=== PATIENT | female | born 1940 | race Caucasian/White ===

== ENCOUNTER 2018-10-29 00:23 | Emergency (ER) | payer MEDICARE, OTHER ==
[~2018-10-29] VITALS: Ht 162.5 cm; Wt 72.6 kg
--- NOTE | ~2018-10-29 | EKG ---
[place], [place] ELECTROCARDIOGRAM REPORT NAME: WINNIE SPENCER UNIT #: [id number] ROOM: DOCTOR: EPIPHANY DRAFT REPORT BIRTHDATE: [birth year] [facility] Test Date: 2018-10-29 Test Time: 03:14:02 Pat Name: WINNIE SPENCER Department: Room: Gender: F Recreation Therapy Aides Teacher: : 1940 Requested By: YARON NOLEN Order Number: [id number] Reading MD: Wilmar Walls MD Measurements Intervals [place] Rate: 82 P: 51 CO: 184 QRS: -32 QRSD: 81 T: 31 QT: 347 QTc: 406 Interpretive Statements Sinus rhythm Atrial premature complexes Left atrial enlargement Left axis deviation Probable anterior infarct, age indeterminate Electronically Signed On 10-30-2018 8:13:54 PDT by Wilmar Walls MD CM:EKGRPT:ELECTROCARDIOGRAM REPORT [id number] YARON RIDER DRAFT REPORT YARON NOLEN DO
--- NOTE | ~2018-10-29 | EKG ---
[place], [place] ELECTROCARDIOGRAM REPORT NAME: WINNIE SPENCER UNIT #: [id number] ROOM: DOCTOR: EPIPHANY DRAFT REPORT BIRTHDATE: [birth year] [facility] Test Date: 2018-10-29 Test Time: 00:30:57 Pat Name: WINNIE SPENCER Department: Room: Gender: F Pharmacist In Charge Owner: : 1940 Requested By: YARON NOLEN Order Number: [id number] Reading MD: Wilmar Walls MD Measurements Intervals [place] Rate: 83 P: 66 [place]: 185 QRS: -39 QRSD: 79 T: 47 QT: 342 QTc: 402 Interpretive Statements Sinus rhythm Atrial premature complex Probable left atrial enlargement Left axis deviation Low voltage, precordial leads Consider anterior infarct Electronically Signed On 10-30-2018 8:13:47 PDT by Wilmar Walls MD CM:EKGRPT:ELECTROCARDIOGRAM REPORT 0030 0813 YARON RIDER DRAFT REPORT YARON NOLEN DO
[~2018-10-29 00:23] MED LIST: ACTOS45 M1 PO; BACTRIM DS 8001 TA1 PO; BACTROBAN CREAM15 GM T; GLYBURIDE AND M1 TA2 PO; JANUVIA100 MG PO; KEFLEX500 MG PO; LANTUS100 U/ML SC; LEVOTHYROXINE112 MCG PO; LIPITOR10 MG PO; LISINOPRIL5 MG PO; VIBRAMYCIN100 MG PO; ZYRTEC10 M3 PO
[2018-10-29 00:56] LABS: BASO # 0.1 10*3/uL (0.0-0.1); BASO % 0.6 % (0.0-1.0); EOS # 0.1 10*3/uL (0.0-0.4); EOS % 1.4 % (1.0-4.0); HEMATOCRIT 38.6 % (37.0-47.0); HEMOGLOBIN 12.9 g/dl (12.0-16.0); LYMPH # 1.6 10*3/uL (1.3-4.4); LYMPH % 19.7 % (27.0-41.0); MEAN CELL VOLUME 96.3 fl (81.0-99.0); MEAN CORPUSCULAR HGB 32.2 pg (27.0-31.0); MEAN CORPUSCULAR HGB CONC 33.4 g/dl (33.0-37.0); MEAN PLATELET VOLUME 9.5 fl (9.6-12.3); MONO # 1.2 10*3/uL (0.1-1.0); MONO % 15.2 % (3.0-9.0); NEUT # 5.1 10*3/uL (2.3-7.9); NEUT % 62.2 % (47.0-73.0); PLATELET COUNT AUTOMATED 241 10*3/uL (130-400); RED BLOOD COUNT 4.01 10*6/uL (4.10-5.10); RED CELL DISTRI WIDTH 13.3 % (0-14.5); WHITE BLOOD COUNT 8.1 10*3/uL (4.8-10.8)
[2018-10-29 01:10] LABS: ACT PARTIAL THROMBO TIME 26.2 SECONDS (20.0-32.1); INTERNATIONAL NORM RATIO 0.9 (2.0-3.5)
[2018-10-29 01:12] LABS: ALBUMIN 3.9 gm/dl (3.1-4.5); ALKALINE PHOSPHATASE 92 U/L (45-117); BUN 9 mg/dl (7-24); CHLORIDE 100 mmol/L (98-107); CREATININE 0.76 mg/dL (0.55-1.02); POTASSIUM 3.7 mmol/L (3.5-5.1); SGOT/AST 16 IU/L (3-35); SGPT/ALT 21 U/L (12-78); SODIUM 136 mmol/L (136-145); TOTAL PROTEIN 6.9 gm/dL (6.4-8.2)
[2018-10-29 01:24] LABS: TROPONIN I < 0.015 ng/ml (<0.045)
[2018-10-29] MEDS ORDERED: ALLERCLEAR10 MG PO (03:45)
[2018-10-29] MEDS ORDERED: ZITHROMAX250 MG PO (03:45)
== END 2018-10-29 03:59 | disposition home or self-care (01) ==
LOC: ED 00:23
PROVIDERS: Emergency Medicine
DX: J40 Bronchitis, not specified as acute or chronic (principal); J32.9 Chronic sinusitis, unspecified; Z90.49 Acquired absence of other specified parts of digestive tract; Z90.710 Acquired absence of both cervix and uterus; Z79.899 Other long term (current) drug therapy; Z79.4 Long term (current) use of insulin; Z88.0 Allergy status to penicillin; Z88.6 Allergy status to analgesic agent

== ENCOUNTER 2019-02-24 15:06 | Emergency (ER) | payer MEDICARE, OTHER ==
[~2019-02-24] VITALS: Ht 162.5 cm; Wt 74.8 kg
[~2019-02-24 15:06] MED LIST changes: +ALLERCLEAR10 MG PO; +ZITHROMAX250 MG PO
[2019-02-24 16:39] LABS: BASO % 0.6 % (0.0-1.0); EOS % 0.2 % (1.0-4.0); HEMATOCRIT 36.1 % (37.0-47.0); HEMOGLOBIN 12.4 g/dl (12.0-16.0); LYMPH # 0.8 10*3/uL (1.3-4.4); LYMPH % 15.5 % (27.0-41.0); MEAN CORPUSCULAR HGB CONC 34.3 g/dl (33.0-37.0); MONO # 0.7 10*3/uL (0.1-1.0); MONO % 13.2 % (3.0-9.0); NEUT # 3.7 10*3/uL (2.3-7.9); NEUT % 70.3 % (47.0-73.0); PLATELET COUNT AUTOMATED 283 10*3/uL (130-400); RED BLOOD COUNT 3.88 10*6/uL (4.10-5.10); RED CELL DISTRI WIDTH 12.4 % (0-14.5); WHITE BLOOD COUNT 5.3 10*3/uL (4.8-10.8)
[2019-02-24 16:58] LABS: ALBUMIN 3.5 gm/dl (3.1-4.5); ALKALINE PHOSPHATASE 89 U/L (45-117); BUN 7 mg/dl (7-24); CHLORIDE 92 mmol/L (98-107); CREATININE 0.68 mg/dL (0.55-1.02); POTASSIUM 3.5 mmol/L (3.5-5.1); SGOT/AST 22 IU/L (3-35); SGPT/ALT 24 U/L (12-78); SODIUM 127 mmol/L (136-145); TOTAL PROTEIN 6.5 gm/dL (6.4-8.2)
== END 2019-02-24 18:46 | disposition home or self-care (01) ==
LOC: ED 15:06
PROVIDERS: Emergency Medicine
DX: S00.93XA Contusion of unspecified part of head, initial encounter (principal); M54.2 Cervicalgia; E11.9 Type 2 diabetes mellitus without complications; K21.9 Gastro-esophageal reflux disease without esophagitis; E07.9 Disorder of thyroid, unspecified; E78.00 Pure hypercholesterolemia, unspecified; W18.09XA Striking against other object with subsequent fall, initial encounter; Y93.02 Activity, running; Y92.89 Other specified places as the place of occurrence of the external cause; Y99.8 Other external cause status; Z90.710 Acquired absence of both cervix and uterus; Z90.49 Acquired absence of other specified parts of digestive tract; Z79.4 Long term (current) use of insulin; Z79.899 Other long term (current) drug therapy; Z88.0 Allergy status to penicillin; Z88.6 Allergy status to analgesic agent

== ENCOUNTER 2019-02-27 13:50 | Inpatient (IN) | payer MEDICARE, OTHER ==
[~2019-02-27] VITALS: Ht 162.5 cm; Wt 71.0 kg
[2019-02-27 13:58] VITALS: BP 177/67
[2019-02-27 14:45] LABS: BASO % 0.5 % (0.0-1.0); EOS % 0.4 % (1.0-4.0); HEMATOCRIT 40.2 % (37.0-47.0); HEMOGLOBIN 13.7 g/dl (12.0-16.0); LYMPH # 0.9 10*3/uL (1.3-4.4); LYMPH % 16.7 % (27.0-41.0); MEAN CELL VOLUME 93.1 fl (81.0-99.0); MEAN CORPUSCULAR HGB 31.7 pg (27.0-31.0); MEAN CORPUSCULAR HGB CONC 34.1 g/dl (33.0-37.0); MEAN PLATELET VOLUME 8.6 fl (9.6-12.3); MONO # 0.7 10*3/uL (0.1-1.0); NEUT # 3.8 10*3/uL (2.3-7.9); NEUT % 68.9 % (47.0-73.0); PLATELET COUNT AUTOMATED 337 10*3/uL (130-400); RED BLOOD COUNT 4.32 10*6/uL (4.10-5.10); RED CELL DISTRI WIDTH 12.4 % (0-14.5); WHITE BLOOD COUNT 5.5 10*3/uL (4.8-10.8)
[2019-02-27 14:55] LABS: ACT PARTIAL THROMBO TIME 28.6 SECONDS (20.0-32.1)
[2019-02-27 15:00] LABS: ALBUMIN 4.3 gm/dl (3.1-4.5); BUN 15 mg/dl (7-24); CHLORIDE 92 mmol/L (98-107); CREATININE 0.79 mg/dL (0.55-1.02); POTASSIUM 3.4 mmol/L (3.5-5.1); SGOT/AST 29 IU/L (3-35); SGPT/ALT 30 U/L (12-78); SODIUM 127 mmol/L (136-145); TOTAL PROTEIN 7.5 gm/dL (6.4-8.2)
[2019-02-27 15:04] LABS: ALKALINE PHOSPHATASE 94 U/L (45-117); ETHYL ALCOHOL < 3.0 mg/dl (<3); TROPONIN I < 0.015 ng/ml (<0.045)
--- NOTE | 2019-02-27 15:40 | NUR ---
PATIENT FRIEND LINDA SUIT [phone] MAY CONTACT WITH ANY QUESTIONS OR CONCERNS ABOUT PATIENT. PER PT LINDA WAS TOLD TO TAKE PURSE, NECKLACE, AND MEDICAL ALERT NECKLACE.
[2019-02-27 15:54] LABS: BILIRUBIN NEGATIVE (NEGATIVE); BLOOD TRACE-INTACT (NEGATIVE); CLARITY CLEAR (CLEAR); COLOR YELLOW (YELLOW); GLUCOSE NEGATIVE (NEGATIVE); KETONE TRACE (NEGATIVE); LEUKO ESTERASE TRACE (NEGATIVE); NITRITE NEGATIVE (NEGATIVE)
[2019-02-27 16:03] LABS: URINE AMPHETAMINES < 1000 (1000ng/ml); URINE BARBITURATES < 200 (200ng/ml); URINE BENZODIAZEPINES < 200 (200ng/ml); URINE CANNABINOIDS (THC) < 50 (50ng/ml); URINE COCAINE < 300 (300ng/ml); URINE METHADONE < 300 (300ng/ml); URINE OPIATES < 300 (300ng/ml); URINE PHENCYCLIDINE < 25 (25ng/ml)
[2019-02-27 16:17] LABS: URIC ACID CRYSTALS 4+
[2019-02-27 16:18] LABS: RBC 0-2 rbc/hpf (0-2)
--- NOTE | 2019-02-27 18:10 | NUR ---
A 78, admitted to , under the services of MAYE Bagley DO with a diagnosis of paranoid hyponatremia. Chief complaint is hallucinations. Patient arrived via stretcher from ER. Monitor applied. Initial assessment completed. Vital signs taken and recorded. See assessment for past medical history, medications and allergies. Patient and/or family oriented to unit. [facility] Clothing/patient valuable form completed. MARIXA BRITT
--- NOTE | 2019-02-27 18:35 | NUR ---
DR. Jo notified of med rec updated and unsure of dosage of lantus.
--- NOTE | 2019-02-27 18:50 | NUR ---
[facility] notified of consult for Dr. Breaux.
[2019-02-27 20:00] VITALS: BP 106/62
--- NOTE | 2019-02-27 20:00 | NUR ---
NOTIFIED OF NEW CONSULT. ORDERS REC'D. SEE LAB RESULTS.
[2019-02-27 22:40] LABS: BILIRUBIN NEGATIVE (NEGATIVE); BLOOD 2+ (NEGATIVE); CLARITY CLEAR (CLEAR); COLOR YELLOW (YELLOW); GLUCOSE NEGATIVE (NEGATIVE); KETONE NEGATIVE (NEGATIVE); LEUKO ESTERASE NEGATIVE (NEGATIVE); NITRITE NEGATIVE (NEGATIVE); PH 5.5 (5.0-9.0); SPECIFIC GRAVITY 1.015 (1.005-1.030); UROBILINOGEN 0.2 E.U./dl (0.2-1.0)
[2019-02-27 23:07] LABS: RBC 16-20 rbc/hpf (0-2)
--- NOTE | 2019-02-27 23:33 | NUR ---
24HR/SHIFT CHART CHECK COMPLETED.
[2019-02-28] VITALS: BP 130/50
--- NOTE | 2019-02-28 06:15 | NUR ---
TOLERATED AM MEDS WELL. NOTICIED PINK LEFT EYE WITH THICK DRAINAGE TO BOTH EYES. NOTIFIED . SAID SHE WOULD COME TO SEE THE PT.
[2019-02-28 07:49] LABS: BASO % 0.8 % (0.0-1.0); EOS # 0.1 10*3/uL (0.0-0.4); EOS % 1.7 % (1.0-4.0); HEMATOCRIT 38.2 % (37.0-47.0); LYMPH % 19.5 % (27.0-41.0); MEAN CELL VOLUME 93.4 fl (81.0-99.0); MEAN CORPUSCULAR HGB 31.8 pg (27.0-31.0); MEAN PLATELET VOLUME 8.9 fl (9.6-12.3); MONO # 0.8 10*3/uL (0.1-1.0); MONO % 15.1 % (3.0-9.0); NEUT # 3.3 10*3/uL (2.3-7.9); NEUT % 62.5 % (47.0-73.0); PLATELET COUNT AUTOMATED 338 10*3/uL (130-400); RED BLOOD COUNT 4.09 10*6/uL (4.10-5.10); RED CELL DISTRI WIDTH 12.5 % (0-14.5); WHITE BLOOD COUNT 5.2 10*3/uL (4.8-10.8)
[2019-02-28 08:00] VITALS: BP 122/64
[2019-02-28 08:10] LABS: ALBUMIN 3.6 gm/dl (3.1-4.5); ALKALINE PHOSPHATASE 80 U/L (45-117); BUN 14 mg/dl (7-24); CHLORIDE 96 mmol/L (98-107); CREATININE 0.66 mg/dL (0.55-1.02); PHOSPHOROUS 3.3 mg/dL (2.5-4.9); POTASSIUM 3.4 mmol/L (3.5-5.1); SGOT/AST 24 IU/L (3-35); SGPT/ALT 27 U/L (12-78); SODIUM 131 mmol/L (136-145); TOTAL PROTEIN 6.3 gm/dL (6.4-8.2)
--- NOTE | 2019-02-28 09:39 | NUR ---
Taxation Accountant in to talk to patient. Patient states lives at HOME with ALONE. There are NO steps in the home. Physician: BIRGIT Pharmacy: [facility] Home health services: NONE Patient's level of ADLs: INDEPENDENT Patient has working utilities: YES DME: MARIAELENA SOUZA Follow-up physician's appointment after d/c: WILL BE MADE BY HOSPITALIST NURSE DIRECTOR ON DISCHARGE Does patient want to access PORTAL?: NO Discharge plan PT LIVES AT HOME ALONE, STATES HER FRIEND KASI HELPS HERE BUT DOES NOT LIVE WITH HER. DENIES ANY NEEDS AT HOME AT THIS TIME. PLAN IS TO RETURN HOME WHEN MEDICALLY STABLE. WILL CONTINUE TO FOLLOW. STATES SHE WILL HAVE A RIDE HOME. . DIEGO LOPEZ
[2019-02-28 12:00] VITALS: BP 120/49
[2019-02-28 16:00] VITALS: BP 140/43
--- NOTE | 2019-02-28 16:06 | NUR ---
IVÁN FOSTER RECOMENDS CONSULT FOR HOME HEALTH FOR ADL.
--- NOTE | 2019-02-28 16:30 | NUR ---
DR. STEVENS AWARE OF SUGAR 23 AND REPEAT 18, REFLUX ORDERED. PATIENT ALERT ORIENTED VERY DIAPHORETIC EATING FOOD. AMP GIVEN AT SAME TIME BLOOD BEING DRAWN.
--- NOTE | 2019-02-28 18:03 | NUR ---
DR. STEVENS AWARE OF REFLUX 305.
--- NOTE | 2019-02-28 19:30 | NUR ---
PT SITTING UP IN BED. ALERT ORIENTED AND PLEASANT MOOD. NO COMPLAINTS ARE VOICED BY PT. PT KEEPS ASKING FOR MORE WATER, SHE HAS ALREADY MET HER FLUID RESTRICTION FOR THE DAY. CALL LIGHT IN REACH.
[2019-02-28 20:00] VITALS: BP 143/50
[2019-03-01] VITALS: BP 157/59
--- NOTE | 2019-03-01 | NUR ---
PT RESTING IN BED. RESPIRATIONS EASY AND UNLABORED ON ROOM AIR. HOB ELEVATED. IV FLUIDS INFUSING. IV SITE PATENT, DRESSING C/D/I. ALL SAFETY MEASURES IN PLACE. CALL LIGHT IN REACH.
--- NOTE | 2019-03-01 06:00 | NUR ---
PT BLOOD SUGAR CHECKED. NO S/S NEEDED PER ORDERS. ALL NEEDS ARE MET. PT PLEASANT AND COOPERATIVE. CALL LIGHT IN REACH.
[2019-03-01 06:02] LABS: BUN 14 mg/dl (7-24); CHLORIDE 98 mmol/L (98-107); CREATININE 0.59 mg/dL (0.55-1.02); SODIUM 130 mmol/L (136-145)
[2019-03-01 06:10] LABS: POTASSIUM 3.5 mmol/L (3.5-5.1)
[2019-03-01 08:00] VITALS: BP 136/72
[2019-03-01 12:00] VITALS: BP 138/70
[2019-03-01 16:00] VITALS: BP 125/50
--- NOTE | 2019-03-01 17:15 | NUR ---
PATIENT TRANSFERED TO 5E NURSE TO NURSE REPORT GIVEN.
[2019-03-01 20:00] VITALS: BP 143/58
--- NOTE | 2019-03-01 20:05 | NUR ---
PT CALLED RN INTO ROOM STATING THAT SHE FEELS THAT HER SUGAR IS LOW. STATES SHE DROPPED TO 20 THE OTHER NIGHT & FEELS LOW. BSG CHECKED AT THIS TIME-131. PT REQUESTING FOOD SHE STILL "DOESN'T FEEL GOOD." BOXED LUNCH PROVIDED.
[2019-03-02] VITALS: BP 150/65
[2019-03-02 06:18] LABS: BUN 19 mg/dl (7-24); CHLORIDE 98 mmol/L (98-107); CREATININE 0.71 mg/dL (0.55-1.02); POTASSIUM 3.5 mmol/L (3.5-5.1); SODIUM 135 mmol/L (136-145)
[2019-03-02 08:00] VITALS: BP 177/70
--- NOTE | 2019-03-02 08:03 | NUR ---
TYLENOL 650 MG GIVEN FOR C/O NECK PAIN,03/30.
--- NOTE | 2019-03-02 09:00 | NUR ---
case management visits with patient, she states she will return home when medcially stable and denies any home needs
--- NOTE | 2019-03-02 09:21 | NUR ---
[facility] NOTIFIED BY DR STEVENS TO HAVE EVAL BY DR HOSKINS.
[2019-03-02 16:00] VITALS: BP 154/62
[2019-03-02] MEDS ORDERED: NAMENDA-5 PO (17:15)
[2019-03-02] MEDS ORDERED: MIRTAZAPINE15 M2 PO (17:15)
[2019-03-02] MEDS ORDERED: ERYTHROMYCIN OPH1 GM OPH (17:15)
[2019-03-02] MEDS ORDERED: URE-NA15 GM PO (17:15)
--- NOTE | 2019-03-02 18:09 | NUR ---
Discharge instructions reviewed with patient/family. Patient receptive and verbalizes understanding. Follow-up care arranged. Written instructions given to patient/family. MATTHEW WOODS
== END 2019-03-02 18:09 | disposition home or self-care (01) | DRG 640 ==
LOC: ED 13:50 → EDHOLD 17:11 → 5E 17:11 → 4E 17:11 → 5E 03-01 16:18
PROVIDERS: Emergency Medicine; Internal Medicine Nephrology; Student in an Organized Health Care Education/Training Program; ADMIT Internal Medicine
DX: E87.1 Hypo-osmolality and hyponatremia (principal); G93.41 Metabolic encephalopathy; F22 Delusional disorders; E87.6 Hypokalemia; E11.65 Type 2 diabetes mellitus with hyperglycemia; E03.9 Hypothyroidism, unspecified; M19.90 Unspecified osteoarthritis, unspecified site; F17.210 Nicotine dependence, cigarettes, uncomplicated; F41.9 Anxiety disorder, unspecified; E83.42 Hypomagnesemia; R31.9 Hematuria, unspecified; Z79.4 Long term (current) use of insulin; Z88.6 Allergy status to analgesic agent; Z88.0 Allergy status to penicillin; Z81.1 Family history of alcohol abuse and dependence; Z80.3 Family history of malignant neoplasm of breast; Z79.899 Other long term (current) drug therapy; Z71.6 Tobacco abuse counseling

== ENCOUNTER 2019-03-06 17:28 | Inpatient (IN) | payer MEDICARE, OTHER ==
[~2019-03-06] VITALS: Ht 162.6 cm; Wt 70.5 kg
[2019-03-06 17:28] VITALS: BP 150/96
[~2019-03-06 17:28] MED LIST changes: +ERYTHROMYCIN OPH1 GM OPH; +MIRTAZAPINE15 M2 PO; +NAMENDA-5 PO; +URE-NA15 GM PO
[2019-03-06 17:53] LABS: BASO % 0.5 % (0.0-1.0); EOS % 0.4 % (1.0-4.0); HEMATOCRIT 38.5 % (37.0-47.0); LYMPH # 1.3 10*3/uL (1.3-4.4); LYMPH % 17.9 % (27.0-41.0); MEAN CELL VOLUME 95.1 fl (81.0-99.0); MEAN CORPUSCULAR HGB 32.1 pg (27.0-31.0); MEAN CORPUSCULAR HGB CONC 33.8 g/dl (33.0-37.0); MEAN PLATELET VOLUME 8.5 fl (9.6-12.3); MONO # 0.7 10*3/uL (0.1-1.0); MONO % 9.5 % (3.0-9.0); NEUT # 5.3 10*3/uL (2.3-7.9); PLATELET COUNT AUTOMATED 305 10*3/uL (130-400); RED BLOOD COUNT 4.05 10*6/uL (4.10-5.10); RED CELL DISTRI WIDTH 12.8 % (0-14.5); WHITE BLOOD COUNT 7.4 10*3/uL (4.8-10.8)
[2019-03-06 18:11] LABS: LIPASE 143 U/L (73-393)
[2019-03-06 18:12] LABS: ACT PARTIAL THROMBO TIME 27.4 SECONDS (20.0-32.1); ALBUMIN 3.9 gm/dl (3.1-4.5); ALKALINE PHOSPHATASE 101 U/L (45-117); BUN 13 mg/dl (7-24); CHLORIDE 95 mmol/L (98-107); CREATININE 0.81 mg/dL (0.55-1.02); POTASSIUM 3.7 mmol/L (3.5-5.1); SGOT/AST 19 IU/L (3-35); SGPT/ALT 26 U/L (12-78); SODIUM 131 mmol/L (136-145); TOTAL PROTEIN 6.9 gm/dL (6.4-8.2)
[2019-03-06 18:17] LABS: BILIRUBIN NEGATIVE (NEGATIVE); BLOOD NEGATIVE (NEGATIVE); CLARITY CLEAR (CLEAR); COLOR YELLOW (YELLOW); GLUCOSE NEGATIVE (NEGATIVE); KETONE NEGATIVE (NEGATIVE); LEUKO ESTERASE TRACE (NEGATIVE); NITRITE NEGATIVE (NEGATIVE); UROBILINOGEN 0.2 E.U./dl (0.2-1.0)
[2019-03-06 18:17] LABS: TROPONIN I < 0.015 ng/ml (<0.045)
[2019-03-06 18:28] LABS: BACTERIA 1+; EPITHELIAL CELLS 0-2
[2019-03-06 20:11] VITALS: BP 132/57
[2019-03-06 20:28] VITALS: BP 157/73
--- NOTE | 2019-03-06 20:28 | NUR ---
A 78, admitted to , under the services of UZAIR Lee DO with a diagnosis of DIZZINESS, ALTERED MENTAL STATUS. Chief complaint is PT STATES HER MEDS ARE ALL MIXED UP. Patient arrived via stretcher from ER. Monitor applied. Initial assessment completed. Vital signs taken and recorded. UZAIR LEE DO notified of admission to the unit. Orders received. See assessment for past medical history, medications and allergies. Patient and/or family oriented to unit. [address] visitation policy reviewed. Clothing/patient valuable form completed. RONNIE BROWER
--- NOTE | 2019-03-06 20:53 | NUR ---
PT DECLINES FLU SHOTS. PT STATES SHE ALREADY HAD HER FLU SHOT FOR THIS SEASON.
[2019-03-06] MEDS ORDERED: JANUVIA100 MG PO (21:07)
[2019-03-06] MEDS ORDERED: PIOGLITAZONE HC45 MG PO (21:12)
[2019-03-06] MEDS ORDERED: CLARITIN10 MG PO (21:14)
[2019-03-06] MEDS ORDERED: GLYBURIDE-METFORMIN PO (23:24)
[2019-03-07] VITALS: BP 137/79
--- NOTE | 2019-03-07 03:58 | NUR ---
Patient sleeping. Respirations relaxed and easy. Siderails up . [place] on. RONNIE BROWER
[2019-03-07 06:35] LABS: BASO % 0.6 % (0.0-1.0); EOS # 0.1 10*3/uL (0.0-0.4); HEMATOCRIT 35.7 % (37.0-47.0); HEMOGLOBIN 12.1 g/dl (12.0-16.0); LYMPH # 0.8 10*3/uL (1.3-4.4); LYMPH % 10.7 % (27.0-41.0); MEAN CELL VOLUME 95.2 fl (81.0-99.0); MEAN CORPUSCULAR HGB 32.3 pg (27.0-31.0); MEAN CORPUSCULAR HGB CONC 33.9 g/dl (33.0-37.0); MEAN PLATELET VOLUME 9.4 fl (9.6-12.3); MONO # 0.7 10*3/uL (0.1-1.0); MONO % 9.2 % (3.0-9.0); NEUT # 5.5 10*3/uL (2.3-7.9); NEUT % 78.1 % (47.0-73.0); PLATELET COUNT AUTOMATED 314 10*3/uL (130-400); RED BLOOD COUNT 3.75 10*6/uL (4.10-5.10); RED CELL DISTRI WIDTH 12.8 % (0-14.5); WHITE BLOOD COUNT 7.1 10*3/uL (4.8-10.8)
[2019-03-07 06:39] LABS: ALBUMIN 3.4 gm/dl (3.1-4.5); ALKALINE PHOSPHATASE 85 U/L (45-117); BUN 10 mg/dl (7-24); CHLORIDE 97 mmol/L (98-107); CREATININE 0.62 mg/dL (0.55-1.02); FREE T4 0.75 ng/dl (0.76-1.46); SGOT/AST 16 IU/L (3-35); SGPT/ALT 22 U/L (12-78); SODIUM 131 mmol/L (136-145)
[2019-03-07 08:05] VITALS: BP 114/60
--- NOTE | 2019-03-07 08:22 | NUR ---
ON ASSESSMENT PATIENT IS ALERT, ABLE TO SAY SHE'S IN THE HOSPITAL, AND ABLE TO MAKE HER NEEDS KNOWN. NO VOICED COMPLAINTS OF PAIN OR SHORTNESS OF BREATH. SHE'S ON ROOM AIR. SEE ALL APPROPRIATE INTERVENTIONS.
--- NOTE | 2019-03-07 08:41 | NUR ---
Shift chart check completed.24 HR chart check completed.
[2019-03-07] MEDS ORDERED: LEVOTHYROXINE125 MCG PO (11:23)
--- NOTE | 2019-03-07 11:24 | NUR ---
Patient lives alone in her own home. Pt states that she continues to drive short distances. Denies the need for any home health services at this time.
[2019-03-07 12:00] VITALS: BP 145/70
--- NOTE | 2019-03-07 14:39 | NUR ---
IV FLUIDS PER DR ORDER. ORTHOSTATIC BP'S WERE DONE MCC THROUGH THAT LITER. PT AMBULATED TO BATHROOM WITHOUT ANY DIZZINESS. AT THIS TIME PT IS INSISTING THAT SHE HAD A DIFFERENT HOME MEDS LIST WHEN SHE CAME IN THAN THE ONE THAT IS IN HER CHART. SHE CLAIMS THAT THE ONE SHE'S EXPECTING WAS COLOR COORDINATED BY [facility] PHARMACIST. I PHONED ER AND SPOKE TO ASHLEE ALEJANDRE WHO HAD HER IN ER AND HE DESCRIBED THE MED LIST THAT WE DO HAVE. I PHONED [facility] TO ASK IF THEY WOULD HAVE A COPY OF THE LIST THAT WAS MADE THAT THEY COULD FAX TO ME BUT THEY DO NOT, BUT THAT THEY ARE AWARE THAT ONE WAS MADE FOR HER LAST WEEK. WE HAVE SEARCHED EVERY OTHER CHART ON THE FLOOR. I HAVE CHECKED HER COAT POCKETS AND HER PURSE FOR ANOTHER LIST TO NO AVAIL.
--- NOTE | 2019-03-07 16:02 | NUR ---
DISCHARGE INSTRUCTIONS TO PT. REINFORCED THAT SHE HAS A PRESCRIPTION AT [facility] FOR NEW THYROID DOSE AND ONLY TO TAKE MEDS PRESCRIBED. HEP LOCK AND MONITOR REMOVED.
--- NOTE | 2019-03-07 16:18 | NUR ---
PT DISCHARGED WITH HER BELONGINGS (EXCEPT HER EXPECTED MED LIST ). SHE WAS TAKEN TO FRONT LOBBY WHERE SHE SAID HER FRIEND WAS GOING TO PICK HER UP AT 1630.
== END 2019-03-07 17:04 | disposition home or self-care (01) | DRG 640 ==
LOC: ED 17:28 → EDHOLD 18:38 → 4E 19:13
PROVIDERS: Emergency Medicine; Internal Medicine; ADMIT Internal Medicine
DX: E87.1 Hypo-osmolality and hyponatremia (principal); G93.41 Metabolic encephalopathy; E11.65 Type 2 diabetes mellitus with hyperglycemia; H10.33 Unspecified acute conjunctivitis, bilateral; E03.9 Hypothyroidism, unspecified; F22 Delusional disorders; M19.90 Unspecified osteoarthritis, unspecified site; F03.90 Unspecified dementia, unspecified severity, without behavioral disturbance, psychotic disturbance, mood disturbance, and anxiety; R91.1 Solitary pulmonary nodule; M50.30 Other cervical disc degeneration, unspecified cervical region; F17.200 Nicotine dependence, unspecified, uncomplicated; E78.5 Hyperlipidemia, unspecified; S00.83XA Contusion of other part of head, initial encounter; I10 Essential (primary) hypertension; Z79.899 Other long term (current) drug therapy; E11.69 Type 2 diabetes mellitus with other specified complication

== ENCOUNTER 2019-07-06 10:08 | Inpatient (IN) | payer MEDICARE, OTHER ==
[~2019-07-06] VITALS: Ht 162.5 cm; Wt 67.6 kg
[~2019-07-06 10:08] MED LIST changes: +CLARITIN10 MG PO; +GLYBURIDE-METFORMIN PO; +LEVOTHYROXINE125 MCG PO; +PIOGLITAZONE HC45 MG PO
[2019-07-06 10:14] VITALS: BP 167/87
--- NOTE | 2019-07-06 10:18 | NUR ---
PATIENT DENIES WOUNDS A&OX4.
--- NOTE | 2019-07-06 10:45 | NUR ---
PATIENT TO CT SCAN AT THIS TIME.
[2019-07-06 10:50] LABS: BASO % 0.5 % (0.0-1.0); EOS % 0.5 % (1.0-4.0); HEMATOCRIT 34.9 % (37.0-47.0); LYMPH # 0.7 10*3/uL (1.3-4.4); LYMPH % 12.5 % (27.0-41.0); MEAN CELL VOLUME 95.1 fl (81.0-99.0); MEAN CORPUSCULAR HGB 31.3 pg (27.0-31.0); MEAN PLATELET VOLUME 8.9 fl (9.6-12.3); MONO # 0.5 10*3/uL (0.1-1.0); MONO % 8.4 % (3.0-9.0); NEUT # 4.4 10*3/uL (2.3-7.9); NEUT % 77.7 % (47.0-73.0); PLATELET COUNT AUTOMATED 293 10*3/uL (130-400); RED BLOOD COUNT 3.67 10*6/uL (4.10-5.10); RED CELL DISTRI WIDTH 13.9 % (0-14.5); WHITE BLOOD COUNT 5.7 10*3/uL (4.8-10.8)
[2019-07-06 11:06] LABS: ALBUMIN 3.4 gm/dl (3.1-4.5); ALKALINE PHOSPHATASE 79 U/L (45-117); BUN 11 mg/dl (7-24); CHLORIDE 98 mmol/L (98-107); CREATININE 0.66 mg/dL (0.55-1.02); LDH 194 U/L (84-246); LIPASE 107 U/L (73-393); POTASSIUM 3.9 mmol/L (3.5-5.1); SGOT/AST 18 IU/L (3-35); SGPT/ALT 19 U/L (12-78); SODIUM 132 mmol/L (136-145); TOTAL PROTEIN 6.4 gm/dL (6.4-8.2); TROPONIN I < 0.015 ng/ml (<0.045)
[2019-07-06 11:21] LABS: BACTERIA 2+; BILIRUBIN NEGATIVE (NEGATIVE); BLOOD NEGATIVE (NEGATIVE); CALCIUM OXALATE CRYSTALS 2+; CLARITY CLEAR (CLEAR); COLOR YELLOW (YELLOW); GLUCOSE NEGATIVE (NEGATIVE); KETONE NEGATIVE (NEGATIVE); LEUKO ESTERASE NEGATIVE (NEGATIVE); NITRITE NEGATIVE (NEGATIVE); SPECIFIC GRAVITY 1.005 (1.005-1.030); UROBILINOGEN < 0.2 E.U./dl (0.2-1.0)
[2019-07-06 13:11] VITALS: BP 160/96
--- NOTE | 2019-07-06 13:33 | NUR ---
PATIENT TAKEN TO 4TH FLOOR BY THIS NURSE BEDSIDE REPORT GIVEN TO LIANG MERCADO.
--- NOTE | 2019-07-06 14:49 | NUR ---
U AWARE OF [facility] CONSULT
--- NOTE | 2019-07-06 14:56 | NUR ---
DR. CAMPBELL AWARE OF CONSULT. NO NEW ORDERS AT THIS TIME
[2019-07-06 16:00] VITALS: BP 153/59
[2019-07-06] MEDS ORDERED: LANTUS SOL100 UNIT/1 SQ (16:06)
--- NOTE | 2019-07-06 16:06 | NUR ---
HOME MEDICATIONS UPDATED VIA CLAIM HISTORY, NAMENDA WELL MIRTAZAPINE WERE STARTED WHEN PATIENT WAS HERE LAST, NOT FILLED OR CONTINUED SINCE THAT ADMISSION.
--- NOTE | 2019-07-06 19:56 | NUR ---
PT AWAKE IN BED. ALERT & ORIENTED X3 AT THIS TIME. PT DENIES ANY NEEDS. NO S/S OF DISTRESS NOTED. WILL MONITOR. BED LEFT LOCKED IN LOW POSITION, BED ALARM INTACT, CALL LIGHT IN REACH.
[2019-07-06 20:00] VITALS: BP 126/48
--- NOTE | 2019-07-06 21:29 | NUR ---
PT REMAINS ALERT & ORIENTED X3. BSG 263. 10 UNITS GIVEN PER SLIDING SCALE. PATIENT EDUCATED ON S/S OF LOW BS AND ENCOURAGED TO CALL NURSE IF NEW SYMPTOMS PRESENT. PT VERBALIZES UNDERSTANDING. WILL MONITOR. CALL LIGHT IN REACH. BED ALARM INTACT.
--- NOTE | 2019-07-06 22:26 | NUR ---
PT CALLED RN IN TO CHECK SUGAR, STATES SHE FEELS LOW. BSG 217. PT DENIES ANY OTHER NEEDS AT THIS TIME. WILL MONITOR.
[2019-07-07] VITALS: BP 126/59
--- NOTE | 2019-07-07 02:14 | NUR ---
NOTIFIED OF PATIENT'S BSG DROPPING TO 46. AMP D50 GIVEN. PATIENT ALSO EATING ABUNDIO CRACKERS & PEANUT BUTTER AND DRINKING ORANGE JUICE. DISCUSSED HOME MEDICATIONS WITH PER HOME MED REC, AND SLIDING SCALE COVERAGE ORDERED IN PLACE OF HOME MEDS. STATES HE WILL SWITCH PT FROM SS #1 TO SS #2. NEW IV SITE INITIATED IN R ARM. PT TOLERATED WELL. BSG UP TO 210 FOLLOWING D50 ADMINISTRATION. WILL CONTINUTE TO MONITOR PT.
--- NOTE | 2019-07-07 02:39 | NUR ---
PT ASLEEP IN BED, EASILY AROUSABLE. WILL CHECK BSG SHORTLY. DENIES ANY NEW/WORSENING S/S. PT REMAINS A&OX3. WILL MONITOR. CALL LIGHT IN REACH. BED ALARM INTACT.
--- NOTE | 2019-07-07 03:03 | NUR ---
BSG 208 PER GLUCOMETER. PT DENIES ANY NEEDS. WILL MONITOR.
--- NOTE | 2019-07-07 03:59 | NUR ---
PT AWAKE IN BED. RESPIRATIONS EASY. BSG 217. DENIES ANY NEEDS. WILL MONITOR. CALL LIGHT IN REACH.
--- NOTE | 2019-07-07 05:22 | NUR ---
PT BSG 215. DENIES ANY NEW SYMPTOMS. WILL MONITOR. CALL LIGHT IN REACH.
--- NOTE | 2019-07-07 06:36 | NUR ---
PT'S BSG 204. PT WANTS TO WAIT FOR INSULIN UNTIL SHE GETS HER BREAKFAST. WILL MONITOR. CALL LIGHT IN REACH.
[2019-07-07 06:43] LABS: BASO # 0.1 10*3/uL (0.0-0.1); BASO % 0.8 % (0.0-1.0); EOS # 0.1 10*3/uL (0.0-0.4); HEMATOCRIT 33.3 % (37.0-47.0); LYMPH # 0.9 10*3/uL (1.3-4.4); LYMPH % 14.5 % (27.0-41.0); MEAN CELL VOLUME 93.5 fl (81.0-99.0); MEAN CORPUSCULAR HGB 31.7 pg (27.0-31.0); MEAN CORPUSCULAR HGB CONC 33.9 g/dl (33.0-37.0); MEAN PLATELET VOLUME 9.6 fl (9.6-12.3); MONO # 0.7 10*3/uL (0.1-1.0); NEUT # 4.5 10*3/uL (2.3-7.9); NEUT % 72.1 % (47.0-73.0); PLATELET COUNT AUTOMATED 319 10*3/uL (130-400); RED BLOOD COUNT 3.56 10*6/uL (4.10-5.10); RED CELL DISTRI WIDTH 13.9 % (0-14.5); WHITE BLOOD COUNT 6.3 10*3/uL (4.8-10.8)
[2019-07-07 06:46] LABS: BUN 9 mg/dl (7-24); CHLORIDE 97 mmol/L (98-107); CREATININE 0.67 mg/dL (0.55-1.02); POTASSIUM 3.8 mmol/L (3.5-5.1); SODIUM 129 mmol/L (136-145)
[2019-07-07 08:00] VITALS: BP 133/67
--- NOTE | 2019-07-07 08:30 | NUR ---
0800 AM ASSESSMENT COMPLETE. PT DENIES C/O AT THIS TIME. BED IN LOW LOCKED POSITION. CALL LIGHT WITHIN REACH. WILL CONTINUE TO MONITOR.
--- NOTE | 2019-07-07 08:30 | NUR ---
HIMA GIVEN THIS AM. WOULD NOT SCAN.
--- NOTE | 2019-07-07 09:00 | NUR ---
Campus Dean in to talk to patient. Patient states lives at home with alone. There are 4 steps in the home. Physician: aide [facility] health services: [facility] Patient's level of ADLs: MINIMAL ASSIST Patient has working utilities: all working DME: cane,walker Follow-up physician's appointment after d/c: will be made by hospitalist nurse director upon discahrge Does patient want to access PORTAL?: no Discharge plan discussed with patient, she states she lives at home alone, she is independent in adls and ambulation, has a friend margo that helps her with whatever she needs, she states she has [facility] health nursing and therapy and would like them to continue when she is discharge. she also states she has a power of mergers and acquisitions attorney, nancy porter [phone]. asked if case management could contact POA regarding any additional things she may need at home, patient stated the POA is out of town at this point but when she returns she doesn't have a problem with case management talking to Nancy, case management will follow. SILVANA MELTON
--- NOTE | 2019-07-07 11:02 | NUR ---
PHYSICAL THERAPY Physical Therapy evaluation completed on 4E with full evaluation to follow. Low complexity PT evaluation per chart review and evaluation, [address]. Recommend physical therapy per plan of care and SNF upon discharge. Thank you for this referral. Dia Craig,PT,DPT
[2019-07-07 12:00] VITALS: BP 137/63
[2019-07-07 16:00] VITALS: BP 150/66
--- NOTE | 2019-07-07 19:28 | NUR ---
PT AWAKE SITTING UP IN CHAIR. NO S/S OF DISTRESS NOTED. WILL MONITOR. CALL LIGHT IN REACH.
[2019-07-07 20:00] VITALS: BP 131/61
[2019-07-08] VITALS: BP 152/65
--- NOTE | 2019-07-08 04:06 | NUR ---
PT ASLEEP IN BED. RESPIRATIONS EASY. NO S/S OF DISTRESS NOTED. WILL MONITOR. CALL LIGHT IN REACH.
[2019-07-08] MEDS ORDERED: SYNTHROID,LEV112 MCG PO (04:25)
[2019-07-08] MEDS ORDERED: ZESTRIL5 MG PO (04:25)
[2019-07-08] MEDS ORDERED: ACTOS45 M1 PO (04:27)
[2019-07-08] MEDS ORDERED: JANUVIA100 MG PO (04:27)
[2019-07-08] MEDS ORDERED: CENTRUM COMPLE1 EACH PO (04:27)
[2019-07-08] MEDS ORDERED: LIPITOR10 MG PO (04:28)
[2019-07-08] MEDS ORDERED: NAMENDA-5 PO (04:28)
[2019-07-08] MEDS ORDERED: REMERON15 M2 PO (04:28)
[2019-07-08] MEDS ORDERED: LANTUS SOL100 UNIT/1 SQ (04:34)
--- NOTE | 2019-07-08 04:34 | NUR ---
MED REC UPDATED PER DISCHARGE PAPERS FROM [facility]. PT WAS JUST DISCHARGED ON 07/01/2019.
--- NOTE | 2019-07-08 06:15 | NUR ---
PT SPILLED COFFEE ON BED. BED CHANGED AT THIS TIME & PT CLEANED UP. PT DENIES ANY OTHER NEEDS. WILL MONITOR. CALL LIGHT IN REACH.
[2019-07-08 07:52] LABS: BUN 7 mg/dl (7-24); CHLORIDE 99 mmol/L (98-107); CREATININE 0.63 mg/dL (0.55-1.02); POTASSIUM 4.3 mmol/L (3.5-5.1); SODIUM 127 mmol/L (136-145)
[2019-07-08 07:54] LABS: BASO # 0.1 10*3/uL (0.0-0.1); BASO % 0.9 % (0.0-1.0); EOS # 0.1 10*3/uL (0.0-0.4); EOS % 1.6 % (1.0-4.0); HEMATOCRIT 35.5 % (37.0-47.0); LYMPH # 1.3 10*3/uL (1.3-4.4); MEAN CORPUSCULAR HGB 31.8 pg (27.0-31.0); MEAN CORPUSCULAR HGB CONC 32.7 g/dl (33.0-37.0); MEAN PLATELET VOLUME 10.7 fl (9.6-12.3); MONO # 0.7 10*3/uL (0.1-1.0); MONO % 12.8 % (3.0-9.0); NEUT # 3.3 10*3/uL (2.3-7.9); NEUT % 60.2 % (47.0-73.0); RED BLOOD COUNT 3.65 10*6/uL (4.10-5.10); RED CELL DISTRI WIDTH 13.7 % (0-14.5); WHITE BLOOD COUNT 5.5 10*3/uL (4.8-10.8)
[2019-07-08 07:55] LABS: MEAN CELL VOLUME 97.3 fl (81.0-99.0); PLATELET COUNT AUTOMATED 182 10*3/uL (130-400)
[2019-07-08 08:00] VITALS: BP 148/76
--- NOTE | 2019-07-08 08:14 | NUR ---
U CALLED AT THIS TIME REGARDING CONSULT.
--- NOTE | 2019-07-08 08:30 | NUR ---
PATIENT RESTING QUIETLY IN BED. CURRENTLY ALERT AND ORIENTED X3. PT DENIES ANY PAIN/DISCOMFORT AT THIS TIME. WILL CONTINUE TO MONITOR. CALL LIGHT WITHIN REACH. VSS.
--- NOTE | 2019-07-08 08:30 | NUR ---
case management visits with patient. discussed with her a discharge plan including educating her on a short term prison for rehab and 24 hour care. she was receptive to this only if she was able to go to [facility]. protective services social worker will make referral to [facility]
--- NOTE | 2019-07-08 09:13 | NUR ---
New Patient referral sent to [facility] on this date. Pending acceptance.
--- NOTE | 2019-07-08 09:15 | NUR ---
PHYSICAL THERAPY Patient seen this am 1;1 for therapy visit and was supine in bed upon therapist arrival. Patient identified by name / and reports no new c/o's at this time. OT insurance underwriting assistant was present for observation only this session as patient transfered supine to sit EOB, then sit to stand SBA x 1. Patient ambulated without AD to bathroom, 15'x 1, demonstrating bouts of unsteady gait pattern and impulsive behaviour. Patient educated on use of wh walker and ambulated additional 40'x 2, CGA, demonstrating smoother gait pattern, no LOB, however needed v/c to improve stride / heel strike. Patient returned to supine in bed and remained with call light, tray table, telephone and bed alarm for safety. Will continue per POC as tolerated, total treatment time 17 minutes. Florentin Lopez, RUSSIAN RUBBER
--- NOTE | 2019-07-08 09:50 | NUR ---
OT NOTE Pt was seen this A.M. 1:1 for 15 minute OT session. Upon arrival pt was supine in bed. Pt identified by name and and had no complaints at this time. Pt transferred supine to sit EOB with SBA. While sitting EOB pt donned B socks with SBA. Sit to stand completed from bed level with SBA and use of w/w for UE support followed by functional mobility to the bathroom with SBA and use of w/w. Throughout mobility pt required mod verbal prompts for safety awareness due to being impulsive. There she transferred on/off standard commode and completed clothing management with SBA for safety. After returning to the EOB challenged pt's dynamic standing balance while weight shifting, crossing midline, and reaching over all planes. Pt was able to maintain F+/G- standing balance throughout. Pt transferred back into bed sit to supine with supervision. There she was left with call light in hand, tray table in place, and bed alarm activated for safety. Continue with rec D/C plan to SNF. TOD Paz
--- NOTE | 2019-07-08 11:00 | NUR ---
RAPID TEST PERFORMED AT THIS TIME PER ORDER.
--- NOTE | 2019-07-08 11:11 | NUR ---
RAPID TEST NEGATIVE.
[2019-07-08 12:00] VITALS: BP 157/70
--- NOTE | 2019-07-08 13:37 | NUR ---
case management informed patient that [facility] does not have an available bed but [facility] does have an open bed and are able to accept patient, patient was agreeable but seemed somewhat confused. case management contacted patient's DANNY Cruz regarding patient's discharge plan. educated her of the discharge plans and she was agreeable with patient going to the [facility] for therapy. case management will follow
--- NOTE | 2019-07-08 13:59 | NUR ---
[facility] has no beds at this time but they have a bed at [facility]. Once medically stable patient can discharge to [facility].
[2019-07-08] MEDS ORDERED: RIVASTIGMINE T1.5 M1 PO (14:29)
--- NOTE | 2019-07-08 14:52 | NUR ---
Patient is discharged at this time to [facility] @ 1600 by family member Abiel. Dc information faxed, MD/ward assistant notified. Abiel notified by phone and will be at ED doors @ 1600 to pickup patient.
--- NOTE | 2019-07-08 15:30 | NUR ---
Discharge instructions reviewed with patient/family. Patient receptive and verbalizes understanding. Follow-up care arranged. Written instructions given to patient/family. MEHRDAD CALVIN.
--- NOTE | 2019-07-08 15:42 | NUR ---
Hospital Exemption completed online in [facility]. Pt. approved for Nursing Facility Placement. Copy placed in patient chart.
--- NOTE | 2019-07-08 16:00 | NUR ---
PATIENT TAKEN OFF FLOOR VIA W/C FOR TRANSPORT TO [facility] PER ORDER.
--- NOTE | 2019-07-08 16:15 | NUR ---
NURSE TO NURSE REPORT GIVEN TO YVETTE AT [facility].
--- NOTE | 2019-07-09 07:39 | NUR ---
OCCUPATIONAL THERAPY CO-SIGN I approve of the Occupational Therapy notes written above. DENTON ABBOTT, OTR/L
--- NOTE | 2019-07-09 07:46 | NUR ---
PHYSICAL THERAPY CO-SIGN I approve of the Physical Therapy notes written above. Payton Nichols PT
== END 2019-07-08 16:30 | disposition other institution (70) | DRG 637 ==
LOC: ED 10:08 → EDHOLD 11:54 → 4E 11:54
PROVIDERS: Internal Medicine Critical Care Medicine; Nurse Practitioner Family; Student in an Organized Health Care Education/Training Program; ADMIT Internal Medicine
DX: E11.649 Type 2 diabetes mellitus with hypoglycemia without coma (principal); G93.41 Metabolic encephalopathy; E87.1 Hypo-osmolality and hyponatremia; C34.90 Malignant neoplasm of unspecified part of unspecified bronchus or lung; F02.81 Dementia in other diseases classified elsewhere, unspecified severity, with behavioral disturbance; G30.9 Alzheimer's disease, unspecified; D64.9 Anemia, unspecified; F17.210 Nicotine dependence, cigarettes, uncomplicated; E03.9 Hypothyroidism, unspecified; M50.30 Other cervical disc degeneration, unspecified cervical region; R91.1 Solitary pulmonary nodule; E78.5 Hyperlipidemia, unspecified; I10 Essential (primary) hypertension; F41.9 Anxiety disorder, unspecified; F39 Unspecified mood [affective] disorder; M19.90 Unspecified osteoarthritis, unspecified site; Z80.3 Family history of malignant neoplasm of breast; Z88.0 Allergy status to penicillin; Z88.6 Allergy status to analgesic agent; Z79.4 Long term (current) use of insulin; Z79.899 Other long term (current) drug therapy; Z71.6 Tobacco abuse counseling

== ENCOUNTER 2019-07-24 04:25 | Inpatient (IN) | payer MEDICARE, OTHER ==
[~2019-07-24] VITALS: Ht 162.6 cm; Wt 64.4 kg
[2019-07-24] VITALS (14 sets, daily range): BP systolic 137–224; BP diastolic 57–112
[~2019-07-24 04:25] MED LIST changes: +CENTRUM COMPLE1 EACH PO; +LANTUS SOL100 UNIT/1 SQ; +REMERON15 M2 PO; +RIVASTIGMINE T1.5 M1 PO; +SYNTHROID,LEV112 MCG PO; +ZESTRIL5 MG PO
--- NOTE | 2019-07-24 04:40 | NUR ---
DR NOLEN NOTIFIED PT HAVING JERKING MOVEMENTS, FOAMING AT MOUTH AND SLURRING SPEECH WHICH IS DIFFERENT FROM BASELINE ON ARRIVAL. DR NOLEN AT BEDSIDE, VERBAL ORDER FOR 1MG IV ATIVAN.
--- NOTE | 2019-07-24 04:45 | NUR ---
PT CONTINUES WITH JERKING MOTIONS, SLURRING WORDS AND GARBLED SPEECH X APPROX 5 MIN, PT THEN DROWSY AND NOT ANSWERING QUESTIONS. PT HAS FIXED GAZE AND SLIGHT L SIDE FACIAL DROOP. DR TAMANNA BUSTILLOS.
--- NOTE | 2019-07-24 04:51 | NUR ---
PT TEMP 102, NOTIFIED MD OF TEMP, HR AND RECENT UTI. REQUEST TYLENOL, FLUID BOLUS AND ANTIBITOICS.
--- NOTE | 2019-07-24 04:54 | NUR ---
LAB AT BEDSIDE
--- NOTE | 2019-07-24 05:09 | NUR ---
THIS RN TO CT WITH PT, AGAIN ASKED MD FOR FLUIDS AND ANTIBIOTIC ORDERS.
[2019-07-24 05:14] LABS: BILIRUBIN NEGATIVE (NEGATIVE); BLOOD TRACE-INTACT (NEGATIVE); CLARITY CLEAR (CLEAR); COLOR YELLOW (YELLOW); GLUCOSE 3+ (NEGATIVE); KETONE NEGATIVE (NEGATIVE); LEUKO ESTERASE NEGATIVE (NEGATIVE); NITRITE NEGATIVE (NEGATIVE); UROBILINOGEN 0.2 E.U./dl (0.2-1.0)
[2019-07-24 05:22] LABS: EPITHELIAL CELLS 21-30
[2019-07-24 05:24] LABS: ALBUMIN 4.3 gm/dl (3.1-4.5); ALKALINE PHOSPHATASE 98 U/L (45-117); BUN 10 mg/dl (7-24); CHLORIDE 89 mmol/L (98-107); CREATININE 0.76 mg/dL (0.55-1.02); POTASSIUM 3.6 mmol/L (3.5-5.1); SGOT/AST 10 IU/L (3-35); SGPT/ALT 24 U/L (12-78); SODIUM 124 mmol/L (136-145); TOTAL PROTEIN 7.8 gm/dL (6.4-8.2)
[2019-07-24 05:25] LABS: TROPONIN I < 0.015 ng/ml (<0.045)
--- NOTE | 2019-07-24 05:25 | NUR ---
PT BACK FROM CT, CONTINUES TO HAVE SLURRED, GARBLED SPEECH. PT HAS STRONG MOVEMENT IN ALL EXTREMITIES. PT NOW DROWSY. WILL CONTINUE TO MONITOR.
[2019-07-24 05:26] LABS: BASO % 0.3 % (0.0-1.0); LYMPH # 0.3 10*3/uL (1.3-4.4); LYMPH % 4.3 % (27.0-41.0); MEAN CELL VOLUME 93.2 fl (81.0-99.0); MEAN CORPUSCULAR HGB 31.5 pg (27.0-31.0); MEAN CORPUSCULAR HGB CONC 33.8 g/dl (33.0-37.0); MEAN PLATELET VOLUME 9.4 fl (9.6-12.3); MONO # 0.6 10*3/uL (0.1-1.0); NEUT # 6.4 10*3/uL (2.3-7.9); NEUT % 86.7 % (47.0-73.0); PLATELET COUNT AUTOMATED 309 10*3/uL (130-400); RED BLOOD COUNT 3.97 10*6/uL (4.10-5.10); WHITE BLOOD COUNT 7.4 10*3/uL (4.8-10.8)
--- NOTE | 2019-07-24 06:46 | NUR ---
PT BACK FROM CT X2, PT AGITATED, REMOVING MONITORS AND COMPLAINING OF "PAIN ALL OVER". PT REQUESTING PAIN MEDICATION, DR NOLEN NOTIFIED. NO NEW ORDERS AT THIS TIME.
--- NOTE | 2019-07-24 07:35 | NUR ---
REPORTS OBTAINED FROM WIRE WEAVER HELPER. PT CONTINUES TO TRY TO GET OUT OF BED. IN VIEW OF STAFF. EMOTION SUPPORT PROVIDED.
--- NOTE | 2019-07-24 08:40 | NUR ---
PT ON EXAM NOTED WITH TENDER, DISTENDED ABD, CT SHOWS FULL BLADDER, CHANEY CATH WAS PLACED, 1500 OBTAINED THEN CLAMPED. WILL MONITOR.
--- NOTE | 2019-07-24 09:10 | NUR ---
CHANEY CATH UN CLAMPED FOR 500CC. TOTAL OF 2000 IN CHANEY BAG SINCE PLACEMENT. PT IS SLEEPING WITH EYES CLOSED. PT IS CALM AT THIS. TIME.
--- NOTE | 2019-07-24 09:57 | NUR ---
PT CONTINUES RESTING WITH EYESE CLOSED, FLOEY CATH CONT IUNES TO DRAIN. WILL MONITOR, CALL LIGHT IN REACH.
--- NOTE | 2019-07-24 11:25 | NUR ---
PT CONTINUE RESTING QUIELTY, WILL ANWERS QUESTIONS AND FOLLOW COMMADS. CALL LIGHT IN REACH. IN VIEW OF NURSING STATION. PT TO BE ADMITTED TO 409 ONCE THE ROOM IS READY.
--- NOTE | 2019-07-24 12:50 | NUR ---
A 78, admitted to 4E, under the services of UZAIR Lee DO with a diagnosis of SUSPECTED COVID 19 AND SEPSIS. Chief complaint DYSURIA. Patient arrived via bed from ER. Monitor applied. Initial assessment completed. Vital signs taken and recorded. UZAIR LEE DO notified of admission to the unit. Orders received. See assessment for past medical history, medications and allergies. Patient and/or family oriented to unit. [facility] visitation policy reviewed. Clothing/patient valuable form completed. MATTHEW WOODS
[2019-07-24] MEDS ORDERED: SYNTHROID,LEV125 MCG PO (14:02)
--- NOTE | 2019-07-24 15:55 | NUR ---
NOTIFIED DR SHAW THAT PT MED REC IS UP TO DATE. PHYSICIAN STATES TO PLACE AN ORDER TO OBTAIN ANOTHER URINE SAMPLE FOR UA-UC. WILL PLACE ORDER AND OBTAIN URINE PER ORDERS.
[2019-07-24 17:10] LABS: BILIRUBIN NEGATIVE (NEGATIVE); BLOOD 2+ (NEGATIVE); CLARITY CLEAR (CLEAR); COLOR YELLOW (YELLOW); GLUCOSE NEGATIVE (NEGATIVE); KETONE NEGATIVE (NEGATIVE); LEUKO ESTERASE NEGATIVE (NEGATIVE); NITRITE NEGATIVE (NEGATIVE); SPECIFIC GRAVITY 1.015 (1.005-1.030); UROBILINOGEN 0.2 E.U./dl (0.2-1.0)
[2019-07-24 17:11] LABS: BACTERIA 1+; RBC 31-40 rbc/hpf (0-2)
[2019-07-24 17:14] LABS: BUN 8 mg/dl (7-24); CHLORIDE 93 mmol/L (98-107); CREATININE 0.67 mg/dL (0.55-1.02); POTASSIUM 2.9 mmol/L (3.5-5.1); SODIUM 127 mmol/L (136-145)
--- NOTE | 2019-07-24 18:25 | NUR ---
PATIENT ON LINE CSR IN ROOM FEEDING PATIENT DINNER. PT LETHARGIC. AROUSES EASILY TO VERBAL STIMULI. PT DENIES PAIN AND SHORTNESS OF BREATH. SAFETY MEASURES IN PLACE. HOB ELEVATED. CHANEY PATENT, DRAINING LIGHT YELLOW URINE. CALL LIGHT IN REACH. BED ALARM IN PLACE.
--- NOTE | 2019-07-24 18:45 | NUR ---
WOUND CARE ORDERS OBTAINED FROM DR SHAW FOR STAGE 1 WOUND TO COCCYX.
--- NOTE | 2019-07-24 21:15 | NUR ---
PATIENT AWAKENS EASILY FOR ASSESSMENT. ASSESSMENT IS COMPLETE WITH NO S/S OF DISTRESS NOTED AT THIS TIME. VITALS OBTAINED. BED IS LOW, LOCKED, ALARMED, AND CALL LIGHT IS WITHIN REACH. WILL CONTINUE TO MONITOR, SEE INTERVENTION SCREEN.
--- NOTE | 2019-07-24 23:20 | NUR ---
PATIENT RESTING IN BED WITH EASY AND REGULAR RESPERS ON ROOM AIR. VITALS OBTAINED. BED IS LOW, LOCKED, ALARMED, AND CALL LIGHT IS WITHIN REACH. TURNED TO LEFT SIDE. WILL CONTINUE TO MONITOR.
[2019-07-25] VITALS: BP 125/71
[2019-07-25 06:24] LABS: BASO % 0.5 % (0.0-1.0); EOS # 0.1 10*3/uL (0.0-0.4); HEMATOCRIT 34.5 % (37.0-47.0); LYMPH # 0.8 10*3/uL (1.3-4.4); LYMPH % 10.7 % (27.0-41.0); MEAN CELL VOLUME 93.2 fl (81.0-99.0); MEAN CORPUSCULAR HGB 32.4 pg (27.0-31.0); MEAN CORPUSCULAR HGB CONC 34.8 g/dl (33.0-37.0); MEAN PLATELET VOLUME 9.1 fl (9.6-12.3); MONO # 1.3 10*3/uL (0.1-1.0); MONO % 16.6 % (3.0-9.0); NEUT # 5.5 10*3/uL (2.3-7.9); NEUT % 70.4 % (47.0-73.0); PLATELET COUNT AUTOMATED 262 10*3/uL (130-400); WHITE BLOOD COUNT 7.8 10*3/uL (4.8-10.8)
[2019-07-25 06:54] LABS: BUN 12 mg/dl (7-24); CHLORIDE 93 mmol/L (98-107); CREATININE 0.71 mg/dL (0.55-1.02); POTASSIUM 3.3 mmol/L (3.5-5.1); SODIUM 127 mmol/L (136-145)
--- NOTE | 2019-07-25 07:00 | NUR ---
TOOK OVER CARE OF PT AT THIS TIME. PT RESTING IN BED. RESPIRATIONS EASY AND UNLABORED ON ROOM AIR. NO S/S OF DISTRESS NOTED. NO COMPLAINTS VOICED. HOB ELEVATED. ALL SAFETY MEASURES IN PLACE. CALL LIGHT IN REACH.
--- NOTE | 2019-07-25 07:09 | NUR ---
GLUCOSE 115 FROM LAB DRAW THIS AM.
--- NOTE | 2019-07-25 07:27 | NUR ---
24 HR chart check completed.
[2019-07-25 08:00] VITALS: BP 158/62
[2019-07-25 08:36] LABS: VITAMIN D, 25-HYDROXY 22.7 ng/mL (30-100)
[2019-07-25 11:16] VITALS: BP 136/70
--- NOTE | 2019-07-25 11:24 | NUR ---
Septic Tank Installer in to talk to patient. Patient states lives at HOME with ALONE. There are 4 steps in the home. Physician: FE [facility]acy: [facility] Home health services: [facility] Patient's level of ADLs: MINIMAL ASSIST Patient has working utilities: YES DME: CANE,WALKER Follow-up physician's appointment after d/c: WILL BE MADE BY HOSPITALIST RN COORDINATOR UPON DISCHARGE Does patient want to access PORTAL?: NO Discharge plan CORPORATE STRATEGY INTERN ATTEMPTED TO CALL THE PATIENTS ROOM WITH NO ANSWER. AMOL PRESENTS FROM . CORPORATE STRATEGY INTERN REACHED OUT TO PATIENTS [facility] [phone]. SHE STATED SHE THAT SHE HAS BEEN TRYING TO GET IN TOUCH WITH PATIENTS DOCTOR BUT HAS NOT BEEN SUCCESSFUL. CORPORATE STRATEGY INTERN STATED THAT SHE WOULD HAVE THE PATIENTS RN REACH OUT TO HER. WINNIE STATED THAT SHE WOULD LIKE THE PATIENT TO RETURN TO SNF WHEN ABLE. SHE ASKED THIS CORPORATE STRATEGY INTERN FOR AN UPDATE. FIORDALIZA WAS IN THE MIDDELE OF PROVIDING UPDATE AND THE PHONE CALL DROPPED CORPORATE STRATEGY INTERN ATTEMPTED TO CALL WINNIE BACK IT WENT TO VOICEMAIL. CORPORATE STRATEGY INTERN LEFT MESSAGE FOR RETURN CALL. CORPORATE STRATEGY INTERN NOTIFIED SOFIYA CHAUDHARI OF [facility] WANTING TO SPEAK WITH SOMEONE. EUGENIO SANCHEZ
--- NOTE | 2019-07-25 11:39 | NUR ---
VOICE STUDIES DIRECTOR WAS ABLE TO REACH BACK OUT TO [facility]- FAIZA. SHE STATED THAT AFTER THINKING ABOUT IT SHE WOULD LIKE THE PATIENT TO RETURN HOME WITH HOME HEALTH, HOWEVER, IF THE PT/OT RECOMMEND SNF, SHE IS OKAY WITH THE PATIENT RETURNING TO [facility]. FIORDALIZA EXPLAINED THAT WE WILL HAVE TO WAIT FOR PCR TO RETURN. FIORDALIZA ALSO EXPLAINED THIS VOICE STUDIES DIRECTOR NOTIFIED SOFIYA FARA OF HER WANTING TO SPEAK WITH THE RN. CASE MANAGEMENT TO FOLLOW.
--- NOTE | 2019-07-25 12:39 | NUR ---
PT SITTING UP IN BED, EATING LUNCH. NOON VITALS OBTAINE DAND WNL. PT VOICES NO COMPLAINTS AND HAS NO S/S OF DISTRESS. RESPIRATIONS ARE EASY AND UNLABORED ON ROOM AIR. SAFETY MEASURES ARE IN PLACE. CALL LIGHT IN REACH. PT VOICES UNDERSTANDING OF HOW TO USE CALL LIGHT.
--- NOTE | 2019-07-25 14:03 | NUR ---
CONFIRMED WITH NURSE AT [facility] THAT PT UPPER DENTURES ARE AT THEIR FACILITY, IN HER ROOM. WILL NOTIFY PATIENT OF THIS.
[2019-07-25 16:00] VITALS: BP 136/82
--- NOTE | 2019-07-25 19:36 | NUR ---
SPOKE WITH FAIZA, PT PRANEETH. UPDATE GIVEN. PRANEETH STATES THAT SHE WILL TRY TO BRING PATIENT'S DENTURES HERE FROM [facility], TOMORROW AFTERNOON.
--- NOTE | 2019-07-25 19:45 | NUR ---
CHART CHECK COMPLETE.
[2019-07-25 20:00] VITALS: BP 159/88
--- NOTE | 2019-07-25 20:06 | NUR ---
PATIENT IS AAOX3 RESTING IN BED WITH EASY AND REGULAR RESPERS ON ROOM AIR. ASSESSMENT IS COMPLETE WITH NO S/S OF DISTRESS NOTED AT THIS TIME. PATIENT C/O HUNGER. BEDSIDE GLUCOSE 374. PATIENT REPOSITIONED IN BED AND TRAY OF FOOD PROVIDED. BED IS LOW, LOCKED, ALARMED, AND CALL LIGHT IS WITHIN REACH. WILL CONTINUE TO MONITOR, SEE INTERVENTIONS.
--- NOTE | 2019-07-25 21:45 | NUR ---
PRN TYLENOL GIVEN FOR C/O BACK AND NECK PAIN. CALL LIGHT IS WITHIN REACH, WILL MONITOR EFFECT.
--- NOTE | 2019-07-25 22:45 | NUR ---
PRN TYLENOL EFFECTIVE PER PATIENT. CALL LIGHT IS WITHIN REACH.
--- NOTE | 2019-07-25 23:30 | NUR ---
VITAL SIGNS OBTAINED. BED BATH PROVIDED. CALL LIGHT IS WITHIN REACH. WILL CONTINUE TO MONITOR.
[2019-07-26] VITALS (7 sets, daily range): BP systolic 139–210; BP diastolic 60–98
--- NOTE | 2019-07-26 05:10 | NUR ---
PATIENT C/O NAUSEA. CLEAR EMESIS NOTED IN BASIN. CALLED TO RN ON FLOOR TO PULL ZOFRAN.
--- NOTE | 2019-07-26 05:12 | NUR ---
MEDICATED WITH IV ZOFRAN ORDERED PER PT REQUEST FOR C/O NAUSEA.
--- NOTE | 2019-07-26 06:12 | NUR ---
ZOFRAN APPEARS EFFECTIVE, PATIENT SLEEPING.
[2019-07-26 06:15] LABS: BASO % 0.4 % (0.0-1.0); EOS % 0.2 % (1.0-4.0); HEMATOCRIT 36.2 % (37.0-47.0); LYMPH # 0.6 10*3/uL (1.3-4.4); LYMPH % 6.8 % (27.0-41.0); MEAN CELL VOLUME 91.9 fl (81.0-99.0); MEAN CORPUSCULAR HGB 31.7 pg (27.0-31.0); MEAN CORPUSCULAR HGB CONC 34.5 g/dl (33.0-37.0); MEAN PLATELET VOLUME 9.6 fl (9.6-12.3); MONO # 1.4 10*3/uL (0.1-1.0); MONO % 16.7 % (3.0-9.0); NEUT # 6.3 10*3/uL (2.3-7.9); NEUT % 75.3 % (47.0-73.0); PLATELET COUNT AUTOMATED 293 10*3/uL (130-400); RED BLOOD COUNT 3.94 10*6/uL (4.10-5.10); RED CELL DISTRI WIDTH 13.8 % (0-14.5); WHITE BLOOD COUNT 8.4 10*3/uL (4.8-10.8)
[2019-07-26 06:41] LABS: BUN 11 mg/dl (7-24); CHLORIDE 94 mmol/L (98-107); CREATININE 0.59 mg/dL (0.55-1.02); POTASSIUM 3.7 mmol/L (3.5-5.1); SODIUM 125 mmol/L (136-145)
--- NOTE | 2019-07-26 06:47 | NUR ---
GLUCOSE 225 FROM AM LABS. ZOFRAN APPEARS EFFECTIVE, PATIENT SLEEPING.
--- NOTE | 2019-07-26 06:50 | NUR ---
GLUCOSE 225 FROM LABS.
--- NOTE | 2019-07-26 07:00 | NUR ---
ARRIVED ON SHIFT, REPORT RECEIVED FROM OFFGOING NURSE,ASSUMED CARE OF PATIENT.
--- NOTE | 2019-07-26 07:15 | NUR ---
INTRODUCED SELF TO PATIENT, BED IN LOW POSITION, WHEEL LOCKS ENGAGED, SIDE RAILS UP X 2 FOR TURNING AND REPOSITIONING, BED ALARM ON, CALL LIGHT WITHIN REACH, NO NEEDS VOICED AT THIS TIME, WHITE BOARD UPDATED.
--- NOTE | 2019-07-26 08:58 | NUR ---
Shift chart check completed.
--- NOTE | 2019-07-26 11:48 | NUR ---
WENT IN TO CHECK PATIENTS VS, BP ON AUTOMATIC CUFF WAS 200/81 MANUALLY WAS 210/98 CALL PLACED TO HOSPITALIST LINE, SPOKE WITH DR. KC AND ADVISED OF RESULT.
--- NOTE | 2019-07-26 20:35 | NUR ---
PT RESTING IN BED. ASSISTED TO TURN TO RIGHT SIDE. NO SOB NOTED. DENIES ANY PAIN, BSG-205, SEE EMAR. TOLERATED ROUTINE MED WITH NO PROBLEM. CALL LIGHT IN REACH. SEE SHIFT ASSESSMENT.
--- NOTE | 2019-07-26 22:00 | NUR ---
PT RESTING IN BED WITH EYES CLOSED. RESP-EASY AND REGULAR. NO C/O AT THIS TIME. CALL LIGHT IN REACH. BED ALARM ON.
[2019-07-27] VITALS (8 sets, daily range): BP systolic 147–206; BP diastolic 58–88
--- NOTE | 2019-07-27 | NUR ---
PT ASSISTED TO STAND UP AND BACK TO BED. RESP-EASY AND REGULAR. NO C/O AT THIS TIME. CALL LIGHT IN REACH. BED ALARM ON. SEE SHIFT ASSESSMENT.
--- NOTE | 2019-07-27 04:00 | NUR ---
PT SLEEPING IN BED. RESP-EASY AND REGULAR. CALL LIGHT IN REACH. BED ALARM ON.
--- NOTE | 2019-07-27 05:20 | NUR ---
PT SLEEPING IN BED, AWAKENS EASILY. BSG-280, SEE EMAR. TOLERATED ROUTINE AM MED WITH NO PROBLEM. CALL LIGHT IN REACH. BED ALARM ON.
[2019-07-27 05:57] LABS: BASO % 0.5 % (0.0-1.0); EOS % 0.4 % (1.0-4.0); HEMATOCRIT 35.8 % (37.0-47.0); LYMPH # 1.3 10*3/uL (1.3-4.4); LYMPH % 16.4 % (27.0-41.0); MEAN CELL VOLUME 93.5 fl (81.0-99.0); MEAN CORPUSCULAR HGB 32.4 pg (27.0-31.0); MEAN CORPUSCULAR HGB CONC 34.6 g/dl (33.0-37.0); MEAN PLATELET VOLUME 9.7 fl (9.6-12.3); MONO % 12.6 % (3.0-9.0); NEUT # 5.3 10*3/uL (2.3-7.9); NEUT % 69.4 % (47.0-73.0); PLATELET COUNT AUTOMATED 298 10*3/uL (130-400); RED BLOOD COUNT 3.83 10*6/uL (4.10-5.10); WHITE BLOOD COUNT 7.7 10*3/uL (4.8-10.8)
[2019-07-27 06:08] LABS: BUN 8 mg/dl (7-24); CHLORIDE 93 mmol/L (98-107); CREATININE 0.64 mg/dL (0.55-1.02); POTASSIUM 3.2 mmol/L (3.5-5.1); SODIUM 128 mmol/L (136-145)
--- NOTE | 2019-07-27 07:00 | NUR ---
ARRIVED ON SHIFT, REPORT RECEIVED, ASSUMED CARE OF PATIENT.
--- NOTE | 2019-07-27 07:30 | NUR ---
INTRODUCED SELF TO PATIENT, BED IN LOW POSITION, WHEEL LOCKS ENGAGED, SIDERAILS UP X 2 FOR TURNING AND REPOSITIONING, BED ALARM ON, CALL LIGHT WITHIN REACH, WHITEBOARD UPDATED, NO NEEDS VOICED AT THIS TIME.
--- NOTE | 2019-07-27 07:56 | NUR ---
REVIEWED RESULTS OF COVID HER SWAB CAME BACK NEGATIVE.
--- NOTE | 2019-07-27 08:00 | NUR ---
Shift chart check completed.
--- NOTE | 2019-07-27 09:55 | NUR ---
WINNIE SPENCER [id number] Please refer to the physician's history and physical for past medical history, comorbid conditions, and allergies. Diagnosis: SUSPECTED COVID 19 VIRUS INFECTION SEPSIS Atif Score: 16,AT RISK WOUND DESCRIPTIONS: Wound Number: 1 Location of the wound: coccyx Type of wound: stage 2 Thickness: Partial Size: 0.8cm x 0.5cm x 0.3cm Tunneling: none Undermining: none Sinus Tract: none Presence of Exudate: Serous Amount: Light Color: Red Odor: None Periwound Skin Appearance: Scar tissue Wound edges: approximated Pain (associated with wound): none at time of assessment How does patient state this happened? pt unsure how long this has been here DSD appilied to coccyx pending physician orders. Patient tolerate dressing changes without diffcuilty. Call light within reach and bed in low position. Surface the patient is resting on: Isoflex SKIN PREVENTION RECOMMENDATION: 1. Pressure redistribution support surface as appropriate 2. Elevate heels 3. Remove boots/TEDS every shift and reapply 4. Head of bed 30 degrees as tolerated 5. Assess nutrition and hydration 6. Manage moisture 7. Avoid the use of containment devices while in bed 8. Use absorptive products on surfaces limit layers of linens on bed 9. Turn and reposition every 1-2 hours in bed and every 1 hour in chair as tolerated 10. Weight shifts every 15 minutes while up in chair 11. Offloading with pillows or device to keep heels elevated off bed 12. Monitor skin at least every shift 13. Inspect under medical devices twice a day WOUND TREATMENT RECOMMENDATIONS: Wheelchair cushion when oob D/C stage 1 guidelines to coccyx Stage 2 guidelines: Cleanse coccyx with nss and apply sureprep around the wound therahoney to wound bed and cover with optifoam gentle every 2 days and prn for soiling Heel raiser pro boots to bilateral feet while in bed
--- NOTE | 2019-07-27 10:26 | NUR ---
PATIENT IS ABLE TO RETURN TO [facility] WHEN MEDICALLY STABLE.
--- NOTE | 2019-07-27 10:26 | NUR ---
Dr. Kim notified of wound care orders needed.
--- NOTE | 2019-07-27 11:38 | NUR ---
PT WAS SHORT TERM CARE AT [facility] AND CAN RETURN WHEN MEDICALLY STABLE.
--- NOTE | 2019-07-27 20:01 | NUR ---
DR. WHEAT NOTIFIED OF PT BP MANULLAY 206/. ORDER FOR IV HYDRALAZINE RECEIVED.
--- NOTE | 2019-07-27 20:16 | NUR ---
IV HYDRALAZINE GIVEN PER ORDER FOR ELEVATED BP. ZOFRAN GIVEN PER ORDER FOR COMPLAINTS OF NAUSEA. WILL MONITOR EFFECTIVENESS OF MEDICATIONS
--- NOTE | 2019-07-27 20:56 | NUR ---
DR. STERLING NOTIFIED OF FOLLOW UP BP OF 198/80 MANUALLY. STATED THAT HE WOULD PUT SOMETHING IN.
--- NOTE | 2019-07-27 21:00 | NUR ---
PER PT, ZOFRAN HELPED NAUSEA.
--- NOTE | 2019-07-27 21:40 | NUR ---
PT MEDICATED WITH IV LABETOLOL PER DR. WHEAT ORDERS.WILL MONITOR.
--- NOTE | 2019-07-27 22:30 | NUR ---
PT BP AT THIS TIME 168/82. DR WHEAT NOTIFIED. NO OTHER ORDERS. CALL LIGHT IN REACH
--- NOTE | 2019-07-27 23:20 | NUR ---
TYLENOL GIVEN FOR TEMP OF 100.6 WILL MONITOR.
--- NOTE | 2019-07-27 23:28 | NUR ---
DR. WHEAT NOTIFIED OF PT BP OF 180/70. STATED TO KEEP AN EYE ON IT AND CHECK AGAIN IN A COUPLE HOURS. NO OTHER ORDERS AT THIS TIME.
--- NOTE | 2019-07-28 00:15 | NUR ---
TYLENOL EFFECTIVE TEMP WNL
[2019-07-28 01:42] VITALS: BP 180/72
--- NOTE | 2019-07-28 01:42 | NUR ---
DR. WHEAT NOTIFIED OF UPDATED BP OF 180/72. STATED HE WOULD PUT IV HYDRALAZINE IN
[2019-07-28 03:30] VITALS: BP 170/60
--- NOTE | 2019-07-28 03:30 | NUR ---
PT BP AT THIS TIME IS 170/70
--- NOTE | 2019-07-28 04:35 | NUR ---
Upon discharge recommend patient to follow up for wound care in outpatient setting continue current wound care orders at discharging facility.
[2019-07-28 06:36] LABS: BUN 9 mg/dl (7-24); CHLORIDE 90 mmol/L (98-107); POTASSIUM 3.5 mmol/L (3.5-5.1); SODIUM 126 mmol/L (136-145)
--- NOTE | 2019-07-28 07:05 | NUR ---
Dressing change to coccyx per physician orders. Patient tolerate dressing changes without diffcuilty. Call light within reach and bed in low position.
[2019-07-28 08:00] VITALS: BP 134/58
--- NOTE | 2019-07-28 08:25 | NUR ---
ELECTRONIC EQUIPMENT MAINT TECH NOTIFIED RN HOSPITALIST COORDINATOR NEVAEH OF NEEDING PT/OT ORDERS THE PATIENT IS RETURNING TO A SNF WHEN MEDICALLY STABLE.
[2019-07-28 12:00] VITALS: BP 139/68
[2019-07-28] MEDS ORDERED: LISINOPRIL10 M1 PO (13:34)
[2019-07-28] MEDS ORDERED: Lantus SC (13:34)
[2019-07-28] MEDS ORDERED: Humalog SQ (13:34)
[2019-07-28] MEDS ORDERED: VITAMIN D350 MC2 PO (13:34)
--- NOTE | 2019-07-28 14:06 | NUR ---
NUCLEAR WEAPONS SPECIALIST NOTIFIED OF PATIENT DISCHARGE. NUCLEAR WEAPONS SPECIALIST SPOKE WITH JESS MARTINEZ. NUCLEAR WEAPONS SPECIALIST SPOKE WITH [facility], THEY ARE ABLE TO TRANSPORT THE PATIENT AT 3PM. NUCLEAR WEAPONS SPECIALIST NOTIFIED SOFIYA SCHULTZ, NUCLEAR WEAPONS SPECIALIST NOTIFED [facility] SANTOS. WILL FAX DISCHARGE ORDERS WHEN ABLE.
--- NOTE | 2019-07-28 14:30 | NUR ---
WOUND PHOTO TAKEN AT THIS TIME OF COCCYX.
--- NOTE | 2019-07-28 15:20 | NUR ---
Discharge instructions reviewed with patient/family. Patient receptive and verbalizes understanding. Follow-up care arranged. Written instructions given to patient/family. REPORT GIVEN TO [facility]. WOUND PHOTO TAKEN. HEPLOCK DISCONTINUED. JUAN RAMON
== END 2019-07-28 14:22 | disposition other institution (70) | DRG 871 ==
LOC: ED 04:25 → EDHOLD 10:29 → 4E 10:29 → EDHOLD 10:34 → 4E 10:40
PROVIDERS: Emergency Medicine; Family Medicine; Internal Medicine; ADMIT Internal Medicine
DX: A41.9 Sepsis, unspecified organism (principal); G93.41 Metabolic encephalopathy; E87.1 Hypo-osmolality and hyponatremia; N13.30 Unspecified hydronephrosis; N30.01 Acute cystitis with hematuria; I16.1 Hypertensive emergency; Z20.828 Contact with and (suspected) exposure to other viral communicable diseases; R33.9 Retention of urine, unspecified; R56.9 Unspecified convulsions; E11.65 Type 2 diabetes mellitus with hyperglycemia; E11.69 Type 2 diabetes mellitus with other specified complication; E03.9 Hypothyroidism, unspecified; F22 Delusional disorders; M19.90 Unspecified osteoarthritis, unspecified site; F03.90 Unspecified dementia, unspecified severity, without behavioral disturbance, psychotic disturbance, mood disturbance, and anxiety; M50.30 Other cervical disc degeneration, unspecified cervical region; R91.1 Solitary pulmonary nodule; E78.5 Hyperlipidemia, unspecified; I10 Essential (primary) hypertension; D64.9 Anemia, unspecified; F17.210 Nicotine dependence, cigarettes, uncomplicated; Z80.3 Family history of malignant neoplasm of breast; Z88.0 Allergy status to penicillin; Z88.6 Allergy status to analgesic agent; Z79.4 Long term (current) use of insulin; Z79.899 Other long term (current) drug therapy; Z90.710 Acquired absence of both cervix and uterus

== ENCOUNTER 2019-08-08 13:49 | Emergency (ER) | payer MEDICARE, OTHER ==
[~2019-08-08 13:49] MED LIST changes: +Humalog SQ; +LISINOPRIL10 M1 PO; +Lantus SC; +SYNTHROID,LEV125 MCG PO; +VITAMIN D350 MC2 PO
[2019-08-08 14:18] LABS: HEMATOCRIT 37.5 % (37.0-47.0); MEAN CELL VOLUME 96.6 fl (81.0-99.0); MEAN CORPUSCULAR HGB 32.2 pg (27.0-31.0); MEAN CORPUSCULAR HGB CONC 33.3 g/dl (33.0-37.0); MEAN PLATELET VOLUME 8.9 fl (9.6-12.3); PLATELET COUNT AUTOMATED 342 10*3/uL (130-400); RED BLOOD COUNT 3.88 10*6/uL (4.10-5.10)
[2019-08-08 14:34] LABS: ALBUMIN 3.4 gm/dl (3.1-4.5); BUN 10 mg/dl (7-24); CHLORIDE 95 mmol/L (98-107); CREATININE 0.88 mg/dL (0.55-1.02); POTASSIUM 3.2 mmol/L (3.5-5.1); SGOT/AST 12 IU/L (3-35); SGPT/ALT 22 U/L (12-78); SODIUM 132 mmol/L (136-145); TOTAL PROTEIN 7.1 gm/dL (6.4-8.2)
[2019-08-08 14:36] LABS: TOTAL CELLS COUNTED 100 #CELLS
[2019-08-08 14:37] LABS: ALKALINE PHOSPHATASE 123 U/L (45-117); ETHYL ALCOHOL < 3.0 mg/dl (<3); PLATELET SUFFICIENCY NORMAL (NORMAL); TROPONIN I < 0.015 ng/ml (<0.045)
[2019-08-08 14:55] LABS: CLARITY CLEAR (CLEAR); COLOR STRAW (YELLOW); GLUCOSE 3+ (NEGATIVE)
[2019-08-08 14:56] LABS: BILIRUBIN NEGATIVE (NEGATIVE); BLOOD 3+ (NEGATIVE); KETONE NEGATIVE (NEGATIVE); LEUKO ESTERASE NEGATIVE (NEGATIVE); NITRITE NEGATIVE (NEGATIVE); SPECIFIC GRAVITY 1.005 (1.005-1.030); URINE AMPHETAMINES < 1000 (1000ng/ml); URINE BARBITURATES < 200 (200ng/ml); URINE BENZODIAZEPINES < 200 (200ng/ml); URINE CANNABINOIDS (THC) < 50 (50ng/ml); URINE COCAINE < 300 (300ng/ml); URINE METHADONE < 300 (300ng/ml); URINE OPIATES < 300 (300ng/ml); UROBILINOGEN 0.2 E.U./dl (0.2-1.0)
[2019-08-08 14:57] LABS: URINE PHENCYCLIDINE < 25 (25ng/ml)
[2019-08-08 14:59] LABS: BACTERIA TRACE; RBC 51-100 rbc/hpf (0-2)
== END 2019-08-08 17:05 | disposition home or self-care (01) ==
LOC: ED 13:49
PROVIDERS: Emergency Medicine
DX: F32.9 Major depressive disorder, single episode, unspecified (principal); E11.9 Type 2 diabetes mellitus without complications; E78.5 Hyperlipidemia, unspecified; E03.9 Hypothyroidism, unspecified; Z88.0 Allergy status to penicillin; Z79.82 Long term (current) use of aspirin; Z79.899 Other long term (current) drug therapy

== ENCOUNTER 2020-05-24 21:21 | Emergency (ER) | payer MEDICARE, OTHER, MEDICAID ==
[~2020-05-24] VITALS: Ht 175.2 cm; Wt 99.8 kg
== END 2020-05-25 02:18 ==
LOC: ED 21:21
DX: S00.83XA Contusion of other part of head, initial encounter (principal); S09.90XA Unspecified injury of head, initial encounter; M19.90 Unspecified osteoarthritis, unspecified site; E11.9 Type 2 diabetes mellitus without complications; E78.5 Hyperlipidemia, unspecified; E03.9 Hypothyroidism, unspecified; Z88.0 Allergy status to penicillin; Z79.82 Long term (current) use of aspirin; Z79.899 Other long term (current) drug therapy; Z90.49 Acquired absence of other specified parts of digestive tract; Z98.890 Other specified postprocedural states; Z90.711 Acquired absence of uterus with remaining cervical stump; X58.XXXA Exposure to other specified factors, initial encounter; Y93.89 Activity, other specified; Y92.89 Other specified places as the place of occurrence of the external cause; Y99.8 Other external cause status

== ENCOUNTER 2020-05-31 13:55 | Inpatient (IN) | payer MEDICARE, OTHER, MEDICAID ==
[~2020-05-31] VITALS: Ht 170.1 cm; Wt 77.1 kg
[2020-05-31 13:56] VITALS: BP 121/54
[2020-05-31 14:15] LABS: BILIRUBIN Negative (Negative); BLOOD 3+ (Negative); CLARITY Turbid (Clear); COLOR Red (Yellow); GLUCOSE 1+ (Negative); KETONE Negative (Negative); LEUKO ESTERASE 3+ (Negative); NITRITE Positive (Negative); PH 7.5 (4.5-8.0); SPECIFIC GRAVITY 1.015 (1.001-1.030)
[2020-05-31 14:19] VITALS: BP 124/60
[2020-05-31 14:21] LABS: BACTERIA 2+; EPITHELIAL CELLS 0-2; RBC TNTC rbc/hpf (0-2); WBC TNTC wbc/hpf (0-5)
[2020-05-31 14:59] LABS: BASO # 0.1 10*3/uL (0.0-0.1); BASO % 0.8 % (0.0-1.0); EOS # 0.1 10*3/uL (0.0-0.4); EOS % 1.5 % (1.0-4.0); HEMATOCRIT 32.8 % (37.0-47.0); LYMPH # 0.9 10*3/uL (1.3-4.4); LYMPH % 10.3 % (27.0-41.0); MEAN CELL VOLUME 97.6 fl (81.0-99.0); MEAN CORPUSCULAR HGB 30.4 pg (27.0-31.0); MEAN CORPUSCULAR HGB CONC 31.1 g/dl (33.0-37.0); MEAN PLATELET VOLUME 8.7 fl (9.6-12.3); MONO % 11.3 % (3.0-9.0); NEUT # 6.7 10*3/uL (2.3-7.9); PLATELET COUNT AUTOMATED 371 10*3/uL (130-400); RED BLOOD COUNT 3.36 10*6/uL (4.10-5.10); RED CELL DISTRI WIDTH 12.7 % (0-14.5); WHITE BLOOD COUNT 8.9 10*3/uL (4.8-10.8)
[2020-05-31 15:14] LABS: ALBUMIN 2.8 gm/dl (3.1-4.5); ALKALINE PHOSPHATASE 125 U/L (45-117); BUN 15 mg/dl (7-24); CHLORIDE 91 mmol/L (98-107); CREATININE 0.68 mg/dL (0.55-1.02); POTASSIUM 4.4 mmol/L (3.5-5.1); SGOT/AST 8 IU/L (3-35); SGPT/ALT 14 U/L (12-78); SODIUM 129 mmol/L (136-145); TOTAL PROTEIN 6.6 gm/dL (6.4-8.2)
[2020-05-31 15:31] VITALS: BP 112/56
[2020-05-31 17:07] VITALS: BP 113/72
[2020-05-31 18:00] VITALS: BP 102/47
[2020-05-31 20:00] VITALS: BP 124/78
[2020-05-31 21:16] LABS: BODY FLUID WBC 2226 /uL
[2020-05-31 21:57] LABS: BF LYMPHOCYTES 49 %; BF MACROPHAGES 15 %; BF MESOTHELIALS 3 %; BF MONOCYTES 32 %
[2020-06-01] VITALS: BP 152/61
[2020-06-01 07:14] LABS: BASO # 0.1 10*3/uL (0.0-0.1); BASO % 0.9 % (0.0-1.0); EOS # 0.1 10*3/uL (0.0-0.4); EOS % 1.4 % (1.0-4.0); HEMATOCRIT 33.7 % (37.0-47.0); LYMPH # 1.3 10*3/uL (1.3-4.4); LYMPH % 13.3 % (27.0-41.0); MEAN CORPUSCULAR HGB 29.4 pg (27.0-31.0); MEAN CORPUSCULAR HGB CONC 31.5 g/dl (33.0-37.0); MEAN PLATELET VOLUME 8.7 fl (9.6-12.3); MONO # 1.2 10*3/uL (0.1-1.0); MONO % 12.2 % (3.0-9.0); NEUT # 6.7 10*3/uL (2.3-7.9); NEUT % 71.7 % (47.0-73.0); PLATELET COUNT AUTOMATED 460 10*3/uL (130-400); RED CELL DISTRI WIDTH 12.6 % (0-14.5); WHITE BLOOD COUNT 9.4 10*3/uL (4.8-10.8)
[2020-06-01 07:20] LABS: ACT PARTIAL THROMBO TIME 26.3 SECONDS (20.0-32.1); MEAN CELL VOLUME 93.6 fl (81.0-99.0)
[2020-06-01 07:26] LABS: ALBUMIN 3.2 gm/dl (3.1-4.5); BUN 11 mg/dl (7-24); CHLORIDE 88 mmol/L (98-107); CHOLESTEROL 139 mg/dL (<200); CREATININE 0.47 mg/dL (0.55-1.02); POTASSIUM 3.7 mmol/L (3.5-5.1); SGOT/AST 8 IU/L (3-35); SGPT/ALT 16 U/L (12-78); SODIUM 130 mmol/L (136-145); TRIGLYCERIDES 47 mg/dl (<150); VLDL CHOLESTEROL 9 mg/dL (6-40)
[2020-06-01 07:32] LABS: ALKALINE PHOSPHATASE 121 U/L (45-117); FREE T4 1.81 ng/dl (0.76-1.46); HDL CHOLESTEROL 76 mg/dl (40-60); LDL CHOLESTEROL 54 mg/dL (9-159)
[2020-06-01 08:00] VITALS: BP 142/56
[2020-06-01 08:50] LABS: VITAMIN D, 25-HYDROXY 26.8 ng/mL (30-100)
[2020-06-01 12:00] VITALS: BP 109/60
[2020-06-01 16:00] VITALS: BP 108/60
[2020-06-01 20:00] VITALS: BP 113/58
[2020-06-02] VITALS: BP 114/71
[2020-06-02 06:27] LABS: BASO # 0.1 10*3/uL (0.0-0.1); BASO % 0.8 % (0.0-1.0); EOS % 0.4 % (1.0-4.0); HEMATOCRIT 30.8 % (37.0-47.0); LYMPH # 1.2 10*3/uL (1.3-4.4); LYMPH % 12.3 % (27.0-41.0); MEAN CELL VOLUME 93.1 fl (81.0-99.0); MEAN CORPUSCULAR HGB 30.2 pg (27.0-31.0); MEAN CORPUSCULAR HGB CONC 32.5 g/dl (33.0-37.0); MEAN PLATELET VOLUME 8.4 fl (9.6-12.3); MONO # 1.2 10*3/uL (0.1-1.0); MONO % 12.6 % (3.0-9.0); NEUT # 7.1 10*3/uL (2.3-7.9); NEUT % 73.6 % (47.0-73.0); PLATELET COUNT AUTOMATED 356 10*3/uL (130-400); RED BLOOD COUNT 3.31 10*6/uL (4.10-5.10); RED CELL DISTRI WIDTH 12.8 % (0-14.5); WHITE BLOOD COUNT 9.7 10*3/uL (4.8-10.8)
[2020-06-02 06:45] LABS: BUN 12 mg/dl (7-24); CHLORIDE 85 mmol/L (98-107); CREATININE 0.51 mg/dL (0.55-1.02); POTASSIUM 3.7 mmol/L (3.5-5.1); SODIUM 127 mmol/L (136-145)
[2020-06-02 08:00] VITALS: BP 116/58
[2020-06-02 11:07] LABS: ACID FAST SPEC PROCESSING Direct Inoculation (.)
[2020-06-02 12:00] VITALS: BP 115/65
[2020-06-02 16:00] VITALS: BP 139/84
[2020-06-03] MEDS ORDERED: ATIVAN ORAL C2 MG/ML SL (13:09)
[2020-06-03] MEDS ORDERED: FUROSEMIDE40 MG PO (13:09)
[2020-06-03] MEDS ORDERED: MORPHINE S10 MG/5 M2 SL (13:09)
== END 2020-06-02 17:38 | disposition hospice, inpatient (51) | DRG 180 ==
LOC: ED 13:55 → EDHOLD 14:48 → 5E 14:48
PROVIDERS: Internal Medicine; Nurse Practitioner; Social Worker Clinical; ADMIT Family Medicine; ATTEND Family Medicine
PROC: 0W9B3ZZ Drainage of Left Pleural Cavity, Percutaneous Approach (ICD-10-PCS; principal; 2020-05-31)
DX: C34.92 Malignant neoplasm of unspecified part of left bronchus or lung (principal); J96.01 Acute respiratory failure with hypoxia; G93.41 Metabolic encephalopathy; E44.0 Moderate protein-calorie malnutrition; J91.0 Malignant pleural effusion; N30.01 Acute cystitis with hematuria; E87.1 Hypo-osmolality and hyponatremia; E87.2 Acidosis; J94.2 Hemothorax; Z66 Do not resuscitate; Z51.5 Encounter for palliative care; I11.0 Hypertensive heart disease with heart failure; I50.9 Heart failure, unspecified; D64.9 Anemia, unspecified; E87.8 Other disorders of electrolyte and fluid balance, not elsewhere classified; E11.65 Type 2 diabetes mellitus with hyperglycemia; E03.9 Hypothyroidism, unspecified; G30.9 Alzheimer's disease, unspecified; F02.80 Dementia in other diseases classified elsewhere, unspecified severity, without behavioral disturbance, psychotic disturbance, mood disturbance, and anxiety; E78.00 Pure hypercholesterolemia, unspecified; M19.90 Unspecified osteoarthritis, unspecified site; F17.210 Nicotine dependence, cigarettes, uncomplicated; E11.69 Type 2 diabetes mellitus with other specified complication; E78.2 Mixed hyperlipidemia; D47.3 Essential (hemorrhagic) thrombocythemia; E55.9 Vitamin D deficiency, unspecified; B96.4 Proteus (mirabilis) (morganii) as the cause of diseases classified elsewhere; Z79.899 Other long term (current) drug therapy; Z79.4 Long term (current) use of insulin; Z88.0 Allergy status to penicillin; Z88.6 Allergy status to analgesic agent; Z79.890 Hormone replacement therapy; Z90.710 Acquired absence of both cervix and uterus; Z80.3 Family history of malignant neoplasm of breast; Z86.16 Personal history of COVID-19; Z68.26 Body mass index [BMI] 26.0-26.9, adult

== ENCOUNTER 2020-06-02 18:09 | Inpatient (IN) | payer OTHER, MEDICARE, MEDICAID ==
[~2020-06-02] VITALS: Ht 170.2 cm; Wt 77.1 kg
[2020-06-02 20:00] VITALS: BP 143/89
[2020-06-03] VITALS: BP 148/72
[2020-06-03 08:00] VITALS: BP 148/72
[2020-06-03 12:00] VITALS: BP 91/42
[2020-06-03] MEDS ORDERED: MORPHINE S10 MG/5 M2 SL (13:09)
[2020-06-03] MEDS ORDERED: FUROSEMIDE40 MG PO (13:09)
[2020-06-03] MEDS ORDERED: ATIVAN ORAL C2 MG/ML SL (13:09)
== END 2020-06-03 15:00 | disposition hospice, home (50) | DRG 189 ==
LOC: 5E 18:09
PROVIDERS: ADMIT Family Medicine; ATTEND Family Medicine
DX: J96.91 Respiratory failure, unspecified with hypoxia (principal); C34.90 Malignant neoplasm of unspecified part of unspecified bronchus or lung; J91.0 Malignant pleural effusion; I50.9 Heart failure, unspecified; Z51.5 Encounter for palliative care; E11.65 Type 2 diabetes mellitus with hyperglycemia; Z66 Do not resuscitate